=== PATIENT | female | born 1995 | race American Indian/Alaskan Native ===

== ENCOUNTER 2019-04-09 13:58 | Emergency (ER) | payer MEDICAID ==
[2019-04-09 15:20] VITALS: BP 122/67
--- NOTE | 2019-04-09 15:23 | Event Note ---
ED Screening Note Date of service: 04/09/19 Time: 15:20 ED Screening Note: 24 y/o female comes in for vaginal discharge for 1 month. No abd pain. Did not try any over the counter medication. This initial assessment/diagnostic orders/clinical plan/treatment(s) is/are subject to change based on patients health status, clinical progression and re- assessment by fellow clinical providers in the ED. Further treatment and workup at subsequent clinical providers discretion. Patient/guardian urged not to elope from the ED as their condition may be serious if not clinically assessed and managed. Initial orders include:
--- NOTE | 2019-04-09 16:13 | Emergency Department Report ---
ED Female HPI - General Chief complaint: Urogenital-Female Stated complaint: VAGINAL AREA ISSUES Time Seen by Provider: 04/09/19 15:20 Source: patient Mode of arrival: Ambulatory Limitations: No Limitations - History of Present Illness Initial comments: Kitty is a healthy 24-year-old female who presents for vaginal irritation. She has burning itching with discharge symptoms have been present for 1 month.. Denies back pain denies abdominal pain. Denies dysuria. MD Complaint: vaginal discharge -: Gradual, month(s) (1) Location: labia Severity: mild Quality: burning Consistency: constant Worsens with: movement, bathing Are you Now?: No Associated Symptoms: denies other symptoms - Related Data Previous Rx's Medication Instructions Recorded Last Taken Type Fluconazole [Diflucan TAB] 150 mg PO ONCE #1 tablet 04/09/19 Unknown Rx Miconazole/Cleanser 17 On Wipe 1 each VG QHS 7 Days #1 kit 04/09/19 Unknown Rx [Monistat 7 Combination Pack] metroNIDAZOLE [Flagyl TAB] 500 mg PO Q12HR 7 Days #14 tab 04/09/19 Unknown Rx Allergies Allergy/AdvReac Type Severity Reaction Status Date / Time No Known Allergies Allergy Unverified 04/09/19 15:22 ED Review of Systems ROS: Stated complaint: VAGINAL AREA ISSUES Other details as noted in HPI Constitutional: denies: fever, malaise Gastrointestinal: denies: abdominal pain, nausea, vomiting, diarrhea Genitourinary: discharge. denies: urgency, dysuria, frequency, hematuria, abnormal menses, dyspareunia Skin: denies: rash, lesions ED Past Medical Hx - Past Medical History Previous Medical History?: No - Surgical History Past Surgical History?: No - Social History Smoking Status: Never Smoker Substance Use Type: Alcohol - Medications Home Medications: Home Medications Medication Instructions Recorded Confirmed Last Taken Type Fluconazole [Diflucan TAB] 150 mg PO ONCE #1 tablet 04/09/19 Unknown Rx Miconazole/Cleanser 17 On Wipe 1 each VG QHS 7 Days #1 kit 04/09/19 Unknown Rx [Monistat 7 Combination Pack] metroNIDAZOLE [Flagyl TAB] 500 mg PO Q12HR 7 Days #14 tab 04/09/19 Unknown Rx ED Physical Exam - General Limitations: No Limitations General appearance: alert, in no apparent distress - Head Head exam: Present: atraumatic, normocephalic - Eye Eye exam: Absent: scleral icterus, conjunctival injection - ENT ENT exam: Present: mucous membranes moist - Neck Neck exam: Present: normal inspection, full ROM - GI/Abdominal GI/Abdominal exam: Present: soft. Absent: distended, tenderness, guarding, rebound - Neurological Exam Neurological exam: Present: alert, oriented X3 - Psychiatric Psychiatric exam: Present: normal affect, normal mood - Skin Skin exam: Present: warm, dry, intact, normal color ED Course Vital Signs 04/09/19 15:14 Temperature 98.4 F Pulse Rate 75 Respiratory 16 Rate Blood Pressure 122/67 O2 Sat by Pulse 99 Oximetry ED Medical Decision Making - Medical Decision Making Clinical impression vaginitis, empiric therapy for Nova bacterial vaginosis with fluconazole, Monistat, metronidazole Critical care attestation.: If time is entered above; I have spent that time in minutes in the direct care of this critically ill patient, excluding procedure time. ED Disposition Clinical Impression: Vaginitis Disposition: DC-01 TO HOME OR SELFCARE Is pt being admited?: No Does the pt Need Aspirin: No Condition: Stable Instructions: Vaginitis (ED) Prescriptions: Miconazole/Cleanser 17 On Wipe [Monistat 7 Combination Pack] 1 each VG QHS 7 Days #1 kit Fluconazole [Diflucan TAB] 150 mg PO ONCE #1 tablet metroNIDAZOLE [Flagyl TAB] 500 mg PO Q12HR 7 Days #14 tab Referrals: ELISE OSUNA MD [Primary Care Provider] - 3-5 Days
[2019-04-09 16:38] LABS: Bacteria,Urine 1+ /HPF (Negative); Bilirubin,Urine NEG (Negative); Blood,Urine NEG (Negative); Color,Urine Yellow (Yellow); Mucus,Urine 2+ /HPF; Protein,Urine <15 mg/dL mg/dL (Negative); Urobilinogen,Urine < 2.0 mg/dL (<2.0)
== END 2019-04-09 16:47 | disposition home or self-care (01) ==
LOC: ED 13:58
DX: N76.0 Acute vaginitis (principal); B96.89 Other specified bacterial agents as the cause of diseases classified elsewhere; Z79.899 Other long term (current) drug therapy
CPT/HCPCS: 81001; 87086; 99283

== ENCOUNTER 2022-01-28 15:48 | Emergency (ER) | payer MEDICAID ==
[2022-01-28 20:20] VITALS: BP 139/83
--- NOTE | 2022-01-28 22:18 | Emergency Department Report ---
- General Chief complaint: Extremity Problem,Nontraumatic Stated complaint: SWOLLEN/INFLAMMATION OF FOOT Time Seen by Provider: 01/28/22 21:42 Source: patient Mode of arrival: Ambulatory Limitations: No Limitations - History of Present Illness Initial comments: 27-year-old female Idris Taylor reporting atraumatic pain and swelling to the right foot of atraumatic nature. She reports having some some discomfort around the base of her toes which does she noticed some swelling was beginning to creep up to her midfoot followed by tenderness, unknown etiology. She report s no fever, chills, sweats. No numbness or tingling, no nausea vomiting MD complaint: insect bite/sting -: Gradual Tetanus Up to Date: yes Location: generalized, R foot Severity: moderate Quality: aching, dull Consistency: constant Improves with: none Worsens with: movement Context: none Associated symptoms: denies other symptoms Treatments Prior to Arrival: none - Related Data Previous Rx's Medication Instructions Recorded Last Taken Type Fluconazole (Nf) [Diflucan TAB] 150 mg PO ONCE #1 tablet 04/09/19 Unknown Rx Miconazole/Cleanser 17 On Wipe 1 each VG QHS 7 Days #1 kit 04/09/19 Unknown Rx [Monistat 7 Combination Pack] metroNIDAZOLE [Flagyl TAB] 500 mg PO Q12HR 7 Days #14 tab 04/09/19 Unknown Rx Chlorhexidine Gluconate [Hibiclens] 10 ml TP BID #240 liquid 01/28/22 Unknown Rx Sulfamethoxazole/Trimethoprim 1 each PO BID #20 tablet 01/28/22 Unknown Rx [Bactrim Ds] cephALEXin [Keflex] 500 mg PO Q6HR #40 capsule 01/28/22 Unknown Rx Allergies Allergy/AdvReac Type Severity Reaction Status Date / Time No Known Allergies Allergy Unverified 04/09/19 15:22 Abscess Boil HPI - HPI Chief Complaint: Extremity Problem,Nontraumatic Stated Complaint: SWOLLEN/INFLAMMATION OF FOOT Time Seen by Provider: 01/28/22 21:42 Home Medications: Previous Rx's Medication Instructions Recorded Last Taken Type Fluconazole (Nf) [Diflucan TAB] 150 mg PO ONCE #1 tablet 04/09/19 Unknown Rx Miconazole/Cleanser 17 On Wipe 1 each VG QHS 7 Days #1 kit 04/09/19 Unknown Rx [Monistat 7 Combination Pack] metroNIDAZOLE [Flagyl TAB] 500 mg PO Q12HR 7 Days #14 tab 04/09/19 Unknown Rx Chlorhexidine Gluconate [Hibiclens] 10 ml TP BID #240 liquid 01/28/22 Unknown Rx Sulfamethoxazole/Trimethoprim 1 each PO BID #20 tablet 01/28/22 Unknown Rx [Bactrim Ds] cephALEXin [Keflex] 500 mg PO Q6HR #40 capsule 01/28/22 Unknown Rx Allergies/Adverse Reactions: Allergies Allergy/AdvReac Type Severity Reaction Status Date / Time No Known Allergies Allergy Unverified 04/09/19 15:22 ED Review of Systems ROS: Stated complaint: SWOLLEN/INFLAMMATION OF FOOT Other details as noted in HPI Comment: All other systems reviewed and negative Constitutional: denies: chills, fever Eyes: denies: eye pain, eye discharge, vision change ENT: denies: ear pain, throat pain Respiratory: denies: cough, shortness of breath, wheezing Cardiovascular: denies: chest pain, palpitations Endocrine: no symptoms reported Gastrointestinal: denies: abdominal pain, nausea, diarrhea Genitourinary: denies: urgency, dysuria, discharge Musculoskeletal: denies: back pain, joint swelling, arthralgia Skin: change in color Neurological: denies: headache, weakness, paresthesias Psychiatric: denies: anxiety, depression Hematological/Lymphatic: denies: easy bleeding, easy bruising ED Past Medical Hx - Social History Smoking Status: Never Smoker Substance Use Type: Alcohol - Medications Home Medications: Home Medications Medication Instructions Recorded Confirmed Last Taken Type Fluconazole (Nf) [Diflucan TAB] 150 mg PO ONCE #1 tablet 04/09/19 Unknown Rx Miconazole/Cleanser 17 On Wipe 1 each VG QHS 7 Days #1 kit 04/09/19 Unknown Rx [Monistat 7 Combination Pack] metroNIDAZOLE [Flagyl TAB] 500 mg PO Q12HR 7 Days #14 tab 04/09/19 Unknown Rx Chlorhexidine Gluconate [Hibiclens] 10 ml TP BID #240 liquid 01/28/22 Unknown Rx Sulfamethoxazole/Trimethoprim 1 each PO BID #20 tablet 01/28/22 Unknown Rx [Bactrim Ds] cephALEXin [Keflex] 500 mg PO Q6HR #40 capsule 01/28/22 Unknown Rx ED Physical Exam - General Limitations: No Limitations General appearance: alert, in no apparent distress - Head Head exam: Present: atraumatic, normocephalic - Eye Eye exam: Present: normal appearance - ENT ENT exam: Present: mucous membranes moist - Neck Neck exam: Present: normal inspection - Respiratory Respiratory exam: Present: normal lung sounds bilaterally. Absent: respiratory distress - Cardiovascular Cardiovascular Exam: Present: regular rate, normal rhythm. Absent: systolic murmur, diastolic murmur, rubs, gallop - GI/Abdominal GI/Abdominal exam: Present: soft, normal bowel sounds - Extremities Exam Extremities exam: Present: normal inspection, tenderness, normal capillary refill, joint swelling. Absent: calf tenderness - Expanded Lower Extremity Exam Right Foot/Toe exam: Present: swelling, erythema 1 - Some excoriation and fissures to this region with some small blistering between the toes and cellulitis is noted 2 - Swelling cellulitis to this region and appears to be stemming from the second interphalangeal joint region between the second and third toes. No subcutaneous emphysema is noted. Pulses are 2+. Capillary refills are still brisk. - Back Exam Back exam: Present: normal inspection - Neurological Exam Neurological exam: Present: alert, oriented X3 - Psychiatric Psychiatric exam: Present: normal affect, normal mood - Skin Skin exam: Present: warm, dry, intact, normal color. Absent: rash ED Course Vital Signs 01/28/22 19:22 Temperature 98.0 F Pulse Rate 75 Respiratory 18 Rate Blood Pressure 139/83 O2 Sat by Pulse 100 Oximetry ED Medical Decision Making - Medical Decision Making Noted all vital signs are stable at the time of triage and discharge. No signs of any fever tachycardia or high potential and or anything else to sick suggest any systemic inflammatory response syndrome/sepsis. There is an active infection involving her foot appears to be more superficial we will treat accordingly have her to follow-up with her primary care provider or the listed provider for further management guidance Critical care attestation.: If time is entered above; I have spent that time in minutes in the direct care of this critically ill patient, excluding procedure time. ED Disposition Clinical Impression: Cellulitis of foot Disposition: HOME / SELF CARE / HOMELESS Is pt being admited?: No Does the pt Need Aspirin: No Condition: Stable Instructions: Cellulitis, Adult Prescriptions: Sulfamethoxazole/Trimethoprim [Bactrim Ds] 1 each PO BID #20 tablet Chlorhexidine Gluconate [Hibiclens] 10 ml TP BID #240 liquid cephALEXin [Keflex] 500 mg PO Q6HR #40 capsule Referrals: [facility] [place] [Provider Group] - 3-5 Days
== END 2022-01-28 23:18 | disposition home or self-care (01) ==
LOC: ED 15:48
DX: L03.115 Cellulitis of right lower limb (principal); F17.200 Nicotine dependence, unspecified, uncomplicated
CPT/HCPCS: 99282

== ENCOUNTER 2022-02-10 11:53 | Emergency (ER) | payer MEDICAID ==
[2022-02-10 13:12] LABS: Basophils % (Auto) 0.5 % (0.0-1.8); Eosinophils # (Auto) 0.1 K/mm3 (0.0-0.4); Eosinophils % (Auto) 0.9 % (0.0-4.3); Hematocrit 38.9 % (30.3-42.9); Hemoglobin 12.6 gm/dl (10.1-14.3); Lymphocytes # (Auto) 1.7 K/mm3 (1.2-5.4); Lymphocytes % (Auto) 27.8 % (13.4-35.0); Mean Corpuscular HGB Conc 33 % (30-34); Mean Corpuscular Volume 88 fl (79-97); Monocytes # (Auto) 0.7 K/mm3 (0.0-0.8); Monocytes % (Auto) 10.7 % (0.0-7.3); Platelet Count 230 K/mm3 (140-440); Red Blood Count 4.44 M/mm3 (3.65-5.03); Red Cell Distribution Width 13.7 % (13.2-15.2)
[2022-02-10 13:20] LABS: BUN/Creatinine Ratio 10; Blood Urea Nitrogen 8 mg/dL (7-17); Calcium 9.7 mg/dL (8.4-10.2); Hemolysis Index 4
[2022-02-10 14:09] LABS: Basophils % (Auto) 0.8 % (0.0-1.8); Eosinophils # (Auto) 0.1 K/mm3 (0.0-0.4); Eosinophils % (Auto) 1.1 % (0.0-4.3); Hematocrit 38.3 % (30.3-42.9); Hemoglobin 12.4 gm/dl (10.1-14.3); Lymphocytes # (Auto) 1.7 K/mm3 (1.2-5.4); Lymphocytes % (Auto) 27.6 % (13.4-35.0); Mean Corpuscular HGB Conc 32 % (30-34); Mean Corpuscular Volume 88 fl (79-97); Monocytes # (Auto) 0.6 K/mm3 (0.0-0.8); Monocytes % (Auto) 10.3 % (0.0-7.3); Platelet Count 224 K/mm3 (140-440); Red Blood Count 4.35 M/mm3 (3.65-5.03); Red Cell Distribution Width 13.8 % (13.2-15.2)
--- NOTE | 2022-02-10 14:28 | Emergency Department Report ---
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 PATIENT DENIES ANY SI/HI AND DENIES ANY VISUAL HALLUCINATION. Patient denies any other symptoms such as fever chill night sweat dizziness blurred vision lightheadedness headache tinnitus ear pain runny nose sore throat loss of taste and smell chest pain palpitation short breath cough abdominal pain nausea vomiting diarrhea constipation joint pain muscle pain new rash and heat or cold intolerance. - Related Data Previous Rx's Medication Instructions Recorded Last Taken Type Fluconazole (Nf) [Diflucan TAB] 150 mg PO ONCE #1 tablet 04/09/19 Unknown Rx Miconazole/Cleanser 17 On Wipe 1 each VG QHS 7 Days #1 kit 04/09/19 Unknown Rx [Monistat 7 Combination Pack] metroNIDAZOLE [Flagyl TAB] 500 mg PO Q12HR 7 Days #14 tab 04/09/19 Unknown Rx Chlorhexidine Gluconate [Hibiclens] 10 ml TP BID #240 liquid 01/28/22 Unknown Rx Sulfamethoxazole/Trimethoprim 1 each PO BID #20 tablet 01/28/22 Unknown Rx [Bactrim Ds] cephALEXin [Keflex] 500 mg PO Q6HR #40 capsule 01/28/22 Unknown Rx Allergies Allergy/AdvReac Type Severity Reaction Status Date / Time No Known Allergies Allergy Unverified 04/09/19 15:22 ED Review of Systems ROS: Stated complaint: DIFFICULTY BREATHING Other details as noted in HPI Comment: All other systems reviewed and negative Constitutional: no symptoms reported Eyes: as per HPI ENT: as per HPI Respiratory: no symptoms reported Cardiovascular: as per HPI Endocrine: no symptoms reported Gastrointestinal: as per HPI Genitourinary: as per HPI Musculoskeletal: as per HPI Skin: as per HPI Neurological: as per HPI Psychiatric: as per HPI Hematological/Lymphatic: as per HPI ED Past Medical Hx - Past Medical History Hx Psychiatric Treatment: Yes (Bipolar - noncompliant with meds) Additional medical history: Anemia - Surgical History Past Surgical History?: No - Social History Smoking Status: Never Smoker - Medications Home Medications: Home Medications Medication Instructions Recorded Confirmed Last Taken Type Fluconazole (Nf) [Diflucan TAB] 150 mg PO ONCE #1 tablet 04/09/19 Unknown Rx Miconazole/Cleanser 17 On Wipe 1 each VG QHS 7 Days #1 kit 04/09/19 Unknown Rx [Monistat 7 Combination Pack] metroNIDAZOLE [Flagyl TAB] 500 mg PO Q12HR 7 Days #14 tab 04/09/19 Unknown Rx Chlorhexidine Gluconate [Hibiclens] 10 ml TP BID #240 liquid 01/28/22 Unknown Rx Sulfamethoxazole/Trimethoprim 1 each PO BID #20 tablet 01/28/22 Unknown Rx [Bactrim Ds] cephALEXin [Keflex] 500 mg PO Q6HR #40 capsule 01/28/22 Unknown Rx ED Physical Exam - General Limitations: No Limitations General appearance: alert, in no apparent distress - Head Head exam: Present: atraumatic, normocephalic, normal inspection - Eye Eye exam: Present: normal appearance, PERRL, EOMI, other (NO WORM SEEN AT BOTH EYES) - ENT ENT exam: Present: normal exam, normal orophraynx, mucous membranes moist, normal external ear exam - Neck Neck exam: Present: normal inspection, full ROM - Respiratory Respiratory exam: Present: normal lung sounds bilaterally - Cardiovascular Cardiovascular Exam: Present: regular rate, normal rhythm, normal heart sounds - GI/Abdominal GI/Abdominal exam: Present: soft - Extremities Exam Extremities exam: Present: normal inspection, full ROM, normal capillary refill - Back Exam Back exam: Present: normal inspection, full ROM - Neurological Exam Neurological exam: Present: alert, altered, oriented X3 - Psychiatric Psychiatric exam: Present: other (QUESTIONING IF PATIENT HAVE TACTILE HALLUCINATION. ) - Skin Skin exam: Present: warm ED Course Vital Signs 02/10/22 02/10/22 02/10/22 11:59 13:53 15:32 Temperature 98.9 F 99 F Pulse Rate 74 74 Respiratory 16 Rate Blood Pressure 134/77 Blood Pressure 131/79 [Left] O2 Sat by Pulse 100 99 100 Oximetry ED Medical Decision Making - Lab Data Result diagrams: 02/10/22 13:54 02/10/22 13:54 Critical care attestation.: If time is entered above; I have spent that time in minutes in the direct care of this critically ill patient, excluding procedure time. ED Disposition Clinical Impression: Psychosis Disposition: [facility] Is pt being admited?: Yes Does the pt Need Aspirin: No Condition: Stable Referrals: ELISE OSUNA MD [Primary Care Provider] - 3-5 Days Time of Disposition: 21:12
[2022-02-10 14:29] LABS: Alanine Aminotransferase 19 units/L (7-56); Albumin 4.5 g/dL (3.9-5); BUN/Creatinine Ratio 10; Blood Urea Nitrogen 8 mg/dL (7-17); Calcium 9.7 mg/dL (8.4-10.2); Hemolysis Index 2
[2022-02-10 15:33] VITALS: BP 131/79
[2022-02-10 18:13] LABS: HCG Qualitative,Urine Negative (Negative)
[2022-02-10 18:15] LABS: Bilirubin,Urine NEG (Negative); Blood,Urine NEG (Negative); Color,Urine Yellow (Yellow); Protein,Urine <15 mg/dL mg/dL (Negative); Urobilinogen,Urine < 2.0 mg/dL (<2.0)
[2022-02-10 18:33] LABS: Mucus,Urine 1+ /HPF
[2022-02-10 18:53] LABS: Benzodiazepines Screen,Urine Negative; Cocaine Screen,Urine Negative; Methadone Screen,Urine Negative; Opiate Screen,Urine Negative
[2022-02-10 19:41] LABS: Amphetamine Screen,Urine Positive; Cannabinoid Screen,Urine Positive
--- NOTE | 2022-02-10 20:38 | XRay Report ---
CHEST 1 VIEW INDICATION / CLINICAL INFORMATION: SOB. COMPARISON: None available. FINDINGS: SUPPORT DEVICES: None. HEART / MEDIASTINUM: No significant abnormality. LUNGS / PLEURA: No significant pulmonary or pleural abnormality. No pneumothorax. ADDITIONAL FINDINGS: No significant additional findings. IMPRESSION: 1. No acute findings. Signer Name: Maria Guadalupe Bennett MD Signed: 02/10/2022 8:33 PM Workstation Name: [id number]
== END 2022-02-10 23:00 ==
LOC: ED 11:53
DX: F29 Unspecified psychosis not due to a substance or known physiological condition (principal); Z79.899 Other long term (current) drug therapy
CPT/HCPCS: 36415; 71045; 80048; 80053; 80307; 80320; 81001; 81025; 85025; 99285; G0480